=== PATIENT | male | born 1995 | race Caucasian/White ===

== ENCOUNTER 2022-05-09 18:46 | Emergency (ER) | payer OTHER, SELFPAY ==
[2022-05-09 18:48] VITALS: BP 162/89; PULSE 112; RESP 14; TEMP 36.2; O2SAT 96; BMI 31.3
--- NOTE | 2022-05-09 19:17 | TELEMED_ITS ---
[facility] has confirmed receipt of a request for visit. This document confirms receipt of the order initiating the consult. To find the results of the consultation, please view the patient's reports for the scanned Tele[facility] Consult.
--- NOTE | 2022-05-09 19:19 | EX.ED.DYSGE1 ---
HPI History of Present Illness Chief Complaint: General Illness Informant: patient Narrative Narrative: Patient presents by private vehicle sudden paresthesias reported from both arms and both legs. States feels paresthesias from the elbows down bilateral along the knee down bilaterally. He has no weakness. He states sore throat for 2 days slight cough today no fever slight head pressure. Denies dyspnea. Denies recent vomiting or diarrhea. Denies fevers. Denies any past med history of similar symptoms in the past. Denies family history of multiple sclerosis. He states he was working up to 5:00 and felt fine since then he states hard to type on his phone due to numbness. Prior similar symptoms: No PFSH PFSH Allergy/AdvReac Type Severity Reaction Status Date / Time No Known Allergies Allergy Verified 05/09/22 18:48 Social History Smoking Status: Never smoker ROS ROS ED Constitutional Constitutional ED: Denies chills, fever(s) or sweats Eyes Eyes: Denies change in vision ENT ENT ED: Reports sore throat; Denies dysphagia Cardiovascular Cardiovascular: Denies chest pain, leg edema, palpitations or racing heartbeat Respiratory/Chest Respiratory/Chest: Reports cough; Denies dyspnea or dyspnea on exertion Gastrointestinal Gastrointestinal: Denies abdominal pain, diarrhea, nausea or vomiting Genitourinary Genitourinary ED: Denies dysuria, hematuria or urinary frequency Musculoskeletal Musculoskeletal: Denies back pain, extremity pain or neck pain Integumentary Denies rash or wounds Neurologic Neurologic: Reports headache(s) and paresthesias; Denies weakness EXAM Physical Exam Const Vital Signs: 05/09/22 18:48 05/09/22 19:22 Temperature 97.2 F L Temperature Source Temporal Pulse Rate 112 H Respiratory Rate 14 Respiratory Effort Normal Respiratory Pattern Normal Blood Pressure 162/89 H Blood Pressure Mean 113 Pulse Ox 96 Oxygen Delivery Method Room Air Positive well nourished and well developed General Appearance ED: well developed and NAD HEENT HEENT Narrative: Mild posterior pharyngeal erythema no exudates. Uvula midline. 1+ symmetric tonsils. Airway patent. normocephalic and atraumatic Eyes PERRL, EOMs intact bilaterally and conjunctivae normal General Eye ED: Yes normal appearance of both eyes Neck no lymphadenopathy and supple General: Negative for tenderness Chest Wall Chest: Negative for tenderness Resp normal respiratory effort and normal air movement Effort and Inspection: symmetric chest movement; Negative for respiratory distress Cardio regular rate, regular rhythm and no murmurs Peripheral Pulses: pulses 2+ throughout GI normal to inspection, nondistended, normoactive bowel sounds and non-tender Palpation: Negative for guarding or rebound tenderness present Back/Spine no CVA tenderness and no thoracic nor lumbar tenderness Extremity normal to inspection General Extremety ED: Negative for edema or tenderness General Extremity: Negative for edema Neuro oriented x3 and CN's II-XII intact bilaterally Neuro Narrative: 22-gauge needle was used to check sensory, patient had decreased sensory from T2 down. Preserved at C7 on the extremities. Is more normal at C6 and C8 distally. He had sensation of the cervical spine down to T1. He had decreased sensation maxillary mandibular area he had forehead sensation and scalp sensation. There is no weakness of the upper and lower extremities. There is 2+ patellar reflex bilaterally. Sensorium / Orientation: awake and alert Sensory Exam: sensory level loss detected Location: T2 Skin no rashes or lesions noted and no wounds MDM MDM MDM Narrative Medical decision making narrative: Patient nontoxic on eval. There is no weakness. However exam definitely note subjective paresthesias from T2 all the way down. He had sparing upper extremities at C7 neck region and forehead. There is numbness even as maxillary mandibular region. Differential from multiple sclerosis, less likelihood for Guillain-Dennison? with proximal description going outwards. There was patellar reflexes. Additional differentials from transverse myelitis to tumors. There is no family history of MS. Laboratory studies were drawn evaluated normal lab normal electrolytes potassium 3.5. Therefore no electrolyte abnormalities. Rapid strep negative COVID and influenza negative. He denies any IV drug use history. He denies any recent fevers. He has no pain in his back. I did order for MRI studies of his brain and cervical spine with and without contrast due to acute symptoms with objective findings. I initially spoke with neurologist Dr. Paige while he was in MRI she agrees with the current work-up. They will evaluate after his MRI. 2199: MRI studies brain and C-spine were negative. I spoke with neurologist Dr. Carpenter, who discussed with the patient who reported all his symptoms resolved. With negative MRI studies brain and C-spine at this time with resolution of symptoms, he states further work-up can be performed as an outpatient with neurology. No further recommendations immediate at this time. I evaluated the patient he states sensations of back with pinching of skin extremities upper and lower back he would now withdrawal. He did not have that earlier. He is given follow-up with Dr. Pat, as an outpatient. Return precautions discussed. All questions were answered. Lab Data Attestation: I reviewed the patient's lab results. Labs: Laboratory Results - last 24 hr 05/09/22 05/09/22 05/09/22 19:27 19:27 19:27 WBC 11.2 H RBC 5.54 Hgb 16.3 Hct 47.0 MCV 84.8 MCH 29.4 MCHC 34.7 RDW Std Deviation 36.7 RDW Coeff of Sue 11.9 Plt Count 279 MPV 9.2 Immature Gran % (Auto) 0.500 Neut % (Auto) 64.0 Lymph % (Auto) 26.4 Woodson % (Auto) 6.2 Eos % (Auto) 2.4 Baso % (Auto) 0.5 Absolute Neuts (auto) 7.2 Absolute Lymphs (auto) 2.96 Nucleated RBC % 0 PT 13.7 INR 1.1 APTT 29.8 Sodium 141 Potassium 3.5 Chloride 105 Carbon Dioxide 28.0 Anion Gap 8 BUN 11 Creatinine 1.06 Estim Creat Clear Calc 121.44 Est GFR (MDRD) Af Amer 110 Est GFR (MDRD) Non-Af 91 BUN/Creatinine Ratio 10.4 Glucose 134 H Calcium 8.6 Radiography Diagnostic Testing: Clinical Impression(s) from Imaging Studies Brain MRI 05/09/22 19:40 IMPRESSION: Normal unenhanced and enhanced MRI of the brain. Electronically Signed: Glen Marcus MD at 21:34 EST Reading Location ID and State: [facility] / [place] , Service support , Cervical Spine MRI 05/09/22 20:26 IMPRESSION: Nonspecific cervical lymphadenopathy otherwise No acute disease Electronically Signed: Glen Marcus MD at 21:48 EST , Discharge Plan Triage Chief Complaint: General Illness ED Provider: Carlos Best Dx/Rx/DC Orders Clinical Impression: Acute viral pharyngitis, Paresthesias Instructions: ED Pharyngitis, Viral, ED Paraesthesias Referrals: Jose Cruz Pat MD [Non-Staff -Ordering Privileges] - 1-2 Weeks Activity Restrictions/Additional Instructions: You had transient paresthesias from T2 level down on exam. Your symptoms resolved. MRI studies of your brain and cervical spine are negative. Follow-up with Dr. Pat for further evaluation and testing. Return if any worsening symptoms. Your strep test was negative and your laboratory studies were all normal. Disposition Disposition: Home, Self Care
[2022-05-09 19:35] LABS: Absolute Lymphocyte Count 2.96 X10^3/uL (0.83-4.51); Absolute Neutrophil Count 7.2 X10^3/uL (2.0-7.7); Basophil# 0.06 X10^3/uL; Basophil% 0.5 % (0-1); Eosinophil# 0.27 X10^3/uL; Eosinophils% 2.4 % (0-5); Hemoglobin 16.3 g/dL (13.0-16.5); Lymphocyte # 2.96 X10^3/ul (0.83-4.51); Lymphocyte % 26.4 % (19-41); Mean Corp Hgb Conc 34.7 g/dL (32-36); Mean Corpuscular Hgb 29.4 pg (27.0-32.0); Mean Corpuscular Volume 84.8 fL (80-94); Mean Platelet Vol. 9.2 fl (6.2-12.0); Monocyte# 0.69 X10^3/uL; Monocyte% 6.2 % (0-10); NRBC Flagged by Analyzer 0 % (0-5); Neutrophil # 7.16 X10^3/uL (2.7-7.7); Platelet Count 279 K/mm3 (150-450); RBC Distribution Width CV 11.9 % (11.6-14.6); RBC Distribution Width SD 36.7 fl (35.1-43.9); Red Blood Count 5.54 M/mm3 (4.6-6.2); White Blood Count 11.2 K/mm3 (4.4-11.0)
--- NOTE | 2022-05-09 19:40 | MRI_ITS ---
STUDY: MRI BRAIN WITH AND WITHOUT CONTRAST REASON FOR EXAM: Male, 26 years old. paresthesias -- Paresthesias T2 down body/ legs TECHNIQUE: Standardized multiplanar fat and water weighted pulse sequences were obtained. IV 20mL CLARISCAN was administered for the contrast portion of the examination. COMPARISON: None. FINDINGS: Normal size of the ventricles and extra-axial spaces for the patient''s age. Normal white matter tracts of the supratentorial brain. There is no evidence for recent intracranial ischemia or other cause of cytotoxic edema on diffusion weighted imaging (DWI). Normal bilateral basal ganglia. Normal thalami. There is no extra-axial fluid accumulation. Normal flow voids within the major intracranial circulation suggesting patency by spin echo criteria. Normal venous enhancement. There is no enhancing intra-axial or extra-axial abnormality. Normal sella turcica, pituitary gland, infundibular stalk, optic chiasm and hypothalamus. Normal tectal plate and pineal gland. Normal midbrain, raz and medulla. Normal cerebellum. Normal basal cisterns. Normal bilateral temporal bones. Normal bilateral internal auditory canals. No demonstrated orbital abnormality, within the constraints of a routine brain study. Normal visualized paranasal sinuses. Normal calvarium and skull base. Normal visualized soft tissue structures. Normal visualized upper cervical spine. MRI/Brain W/WO Contrast IMPRESSION: Normal unenhanced and enhanced MRI of the brain. Electronically Signed: Glen Marcus MD at 21:34 EST ,
[2022-05-09 19:45] LABS: International Normalized Ratio 1.1; Prothrombin Time (Protime)PT. 13.7 SECONDS (11.7-14.9)
[2022-05-09 19:46] LABS: Partial Thromboplast Time 29.8 Seconds (24.1-36.2)
[2022-05-09 19:52] LABS: Anion Gap 8 (5-15); BUN 11 mg/dL (7-18); BUN/Creat Ratio 10.4 RATIO (10-20); Calcium,Total 8.6 mg/dL (8.5-10.1); Chloride 105 mmol/L (98-107); Creatinine, Serum 1.06 mg/dL (0.70-1.30); EST Glomerular Filtration Rate 91 mL/min (>60); Est Glom Filt Rate - Afr Amer 110 mL/min (>60); Estimated Creatinine Clearance 121.44 ml/min; Glucose 134 mg/dL (74-106); Potassium 3.5 mmol/L (3.5-5.1); Sodium Level 141 mmol/L (136-145)
--- NOTE | 2022-05-09 20:26 | MRI_ITS ---
STUDY: MRI CERVICAL SPINE WITH AND WITHOUT CONTRAST REASON FOR EXAM: Male, 26 years old. paresthesias -- T2 down TECHNIQUE: Standardized fat and water weighted pulse sequences were obtained in the sagittal and axial following administration of IV 20 cc clariscan. COMPARISON: MR brain May 09, 2022 FINDINGS: Normal foramen magnum and brainstem-cervical cord junction. Normal craniovertebral junction. Normal anterior atlantoaxial articulation. Normal odontoid process. Normal cervical lordosis. Normal vertebral bodies and posterior osseous elements. C2-3: Normal endplates. Normal disc height, signal and morphology. Normal central canal and intervertebral neural foramina. C3-4: Normal endplates. Normal disc height, signal and morphology. Normal central canal and intervertebral neural foramina. C4-5: Normal endplates. Normal disc height, signal and morphology. Normal central canal and intervertebral neural foramina. C5-6: Normal endplates. Normal disc height, signal and morphology. Normal central canal and intervertebral neural foramina. C6-7: Normal endplates. Normal disc height, signal and morphology. Normal central canal and intervertebral neural foramina. C7-T1: Normal endplates. Normal disc height, signal and morphology. Normal central canal and intervertebral neural foramina. Normal cervical cord. Reactive bilateral cervical lymphadenopathy. Normal visualized soft tissue structures. MRI/Spine Cervical W/WO Contrast IMPRESSION: Nonspecific cervical lymphadenopathy otherwise No acute disease Electronically Signed: Glen Marcus MD at 21:48 EST ,
== END 2022-05-09 22:25 | disposition home or self-care (01) ==
PROVIDERS: Emergency Provider Emergency Medicine; Visit Provider Emergency Medicine
DX: J02.8 Acute pharyngitis due to other specified organisms (principal); R20.2 Paresthesia of skin; Z20.822 Contact with and (suspected) exposure to COVID-19
CPT/HCPCS: 70553; 72156; 80048; 85025; 85610; 85730; 87428; 87880; 99283; A9575